=== PATIENT | female | born 2005 | race African-American/Black ===

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

== ENCOUNTER 2025-07-31 13:17 | Emergency (ER) | payer SELFPAY ==
[2025-07-31] MEDS ORDERED: Ketorolac Tromethamine 30 MG (1 mL) VIAL ONE (13:51)
[2025-07-31 13:54] LABS: #Basophils 0.03 10x3/uL (0.0-0.2); #Eosinophils Less than 0.03 10x3/uL (0.0-0.5); #Monocytes 0.22 10x3/uL (0.0-1.1); #Neutrophils 6.80 10x3/uL (1.5-8.4); %Basophils 0.4 % (0.0-2.0); %Eosinophils 0.0 % (0.0-6.0); %Lymphocytes 11.3 % (18.0-47.0); %Monocytes 2.8 % (0.0-10.0); %Neutrophils 85.2 % (40.0-75.0); Hematocrit 41.3 % (34.9-44.5); Hemoglobin 13.9 g/dL (12.0-15.5); Mean Corpuscular Hemoglobin 29.1 pg (27.0-33.0); Mean Corpuscular Volume 86.4 fL (81.6-98.3); Platelet Count 208 10x3/uL (150-450); Red Blood Cell (RBC) Count 4.78 10x6/uL (3.90-5.03); White Blood Cell (WBC) Count 7.97 10x3/uL (3.5-10.5)
[2025-07-31 14:04] LABS: BHCG - Serum Negative (NEGATIVE); Pregs Control Background? CLEAR/WHITE (CLR/WHITE); Pregs Control Bar Appear? YES (CONTROL BAR)
[2025-07-31 14:10] LABS: ALT (SGPT) 16 U/L (Less than 34); AST (SGOT) 34 U/L (11-34); Albumin 4.6 g/dL (3.1-4.5); Alkaline Phosphatase 69 U/L (40-100); Anion Gap 14 mmol/L (10-20); BUN (Urea Nitrogen) 10 mg/dL (8.4-21.0); Bilirubin, Total 0.9 mg/dL (0.3-1.2); Calc. Creatinine Clearance 0 mL/min (70-130); Calcium 10.3 mg/dL (7.8-10.44); Carbon Dioxide 20 mmol/L (22-29); Chloride 107 mmol/L (98-107); Globulin 4.2 g/dL (2.4-3.5); Glucose 137 mg/dL (70-105); Potassium 4.0 mmol/L (3.5-5.1); Sodium 137 mmol/L (136-145)
[2025-07-31 15:18] LABS: Glucose, Urine (Dipstick) Normal (Negative); Leukocyte 25 (Negative); Protein, Urine (Dipstick) 30 mg/dl (Neg-Trace); Specific Gravity, Urine 1.020 (1.005-1.030)
[2025-07-31 15:34] LABS: CAUTI Indications for Culture Pelvic or flank pain
[2025-07-31 15:37] LABS: Bacteria/HPF 2+ HPF (None Seen)
[2025-07-31 15:38] LABS: Mucous/LPF 4+ LPF (<2+)
[2025-07-31 15:41] LABS: Urine Culture Reflex No No
== END 2025-07-31 16:25 | disposition home or self-care (01) ==
LOC: CSHERS 13:17
DX: N39.0 Urinary tract infection, site not specified (principal)
CPT/HCPCS: 36415; 76856; 80053; 81001; 84703; 85025; 87086; 96374; 96375; J1885; J3010